=== PATIENT | female | born 1970 | race Caucasian/White ===

== ENCOUNTER 2020-03-02 17:52 | Outpatient (CLI) | payer OTHER ==
--- NOTE | 2020-03-02 18:23 | RAD ---
XR Chest Pa Lat STANDARD HISTORY: Covid 19 COMPARISON: None FINDINGS: The heart size is normal. The lungs are well expanded without focal areas of consolidation, pneumothorax or pleural effusions. IMPRESSION: No radiographic evidence of acute cardiopulmonary process.
== END 2020-03-02 17:53 | disposition home or self-care (01) ==
LOC: MADRAD 17:52
PROVIDERS: ATTEND Family Medicine
DX: R06.02 Shortness of breath (principal); Z20.828 Contact with and (suspected) exposure to other viral communicable diseases
CPT/HCPCS: 71046

== ENCOUNTER 2022-03-03 04:11 | Emergency (ER) | payer OTHER, SELFPAY ==
[2022-03-03] MEDS ORDERED: Ketorolac Tromethamine 30 MG/ML VIAL ONE (05:00)
[2022-03-03] MEDS ORDERED: Cyclobenzaprine 10 MG TAB ONE (05:01)
== END 2022-03-03 05:49 | disposition home or self-care (01) ==
LOC: MADERS 04:11
DX: M94.0 Chondrocostal junction syndrome [Tietze] (principal); J42 Unspecified chronic bronchitis; Z86.16 Personal history of COVID-19; Z86.718 Personal history of other venous thrombosis and embolism; Z86.711 Personal history of pulmonary embolism; Z79.899 Other long term (current) drug therapy
CPT/HCPCS: 93005; 96372; J1885